=== PATIENT | male | born 1965 | race Caucasian/White ===

== ENCOUNTER 2016-05-20 02:54 | Emergency (ER) | payer OTHER ==
[2016-05-20] MEDS ORDERED: Rocephin 1000 MG INJ IM ONE (03:28)
[2016-05-20] MEDS ORDERED: NORCO 5/325 MG PO ONE ×2 (03:29)
[2016-05-20 03:31] VITALS: BP 134/88; PULSE 96; O2SAT 96
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
[2016-05-20] MEDS ORDERED: XYLOCAINE 1% HCL 20 ML MDV ONE (03:43)
[2016-05-20] MEDS ORDERED: NORCO 5/325 MG ONE (03:43)
[2016-05-20] MEDS ORDERED: Rocephin 1000 MG INJ ONE (03:43)
== END 2016-05-20 04:19 | disposition home or self-care (01) ==
LOC: ED 02:54
DX: K04.7 Periapical abscess without sinus (principal)
CPT/HCPCS: 96372; 99282; J0696